=== PATIENT | male | born 1965 | race Caucasian/White ===

== ENCOUNTER 2020-03-13 10:42 | Emergency (ER) | payer OTHER ==
[2020-03-13 11:26] LABS: ABSOLUTE EOSINOPHILS # (AUTO) 0.2 10^3/uL (0.0-0.6); ABSOLUTE MONOCYTES (AUTO) 0.5 10^3/uL (0.1-1.4); ABSOLUTE NEUT (AUTO) 4.3 10^3/uL (1.7-8.2); BASOPHILS % (AUTO) 0.6 % (0-2); EOSINOPHILS % (AUTO) 2.8 % (0-6); HEMATOCRIT 45.8 % (37.9-51.0); HEMOGLOBIN 15.8 g/dL (13.5-17.0); LYMPHOCYTES % (AUTO) 16.9 % (13-45); MEAN CORPUSCULAR HEMOGLOBIN 30.7 pg (27.0-33.4); MEAN CORPUSCULAR HGB CONC 34.6 g/dL (32.0-36.0); MEAN CORPUSCULAR VOLUME 89 fl (80-97); PLATELET COUNT 241 10^3/uL (150-450); RED BLOOD COUNT 5.16 10^6/uL (4.35-5.55); RED CELL DISTRIBUTION WIDTH 13.5 % (11.5-14.0); SEGMENTED NEUTROPHILS % (AUTO) 71.7 % (42-78); TOTAL CELLS COUNTED % (AUTO) 100 %
[2020-03-13 11:46] LABS: ALBUMIN 3.7 g/dL (3.5-5.0); ALKALINE PHOSPHATASE 87 U/L (38-126); ANION GAP 6 (5-19); ASPARTATE AMINO TRANSFERASE 22 U/L (17-59); BILIRUBIN,TOTAL 0.8 mg/dL (0.2-1.3); BLOOD UREA NITROGEN 21 mg/dL (7-20); CALCIUM 8.8 mg/dL (8.4-10.2); CARBON DIOXIDE 27 mmol/L (22-30); CHLORIDE 101 mmol/L (98-107); CREATINE KINASE 50 U/L (55-170); GLUCOSE 217 mg/dL (75-110); POTASSIUM 4.2 mmol/L (3.6-5.0); TOTAL PROTEIN 6.6 g/dL (6.3-8.2)
[2020-03-13 12:05] LABS: TROPONIN I < 0.012 ng/mL
--- NOTE | 2020-03-13 12:25 | RADIOLOGY REPORT (SQ) ---
EXAM DESCRIPTION: CHEST SINGLE VIEW IMAGES COMPLETED DATE/TIME: 03/13/2020 12:16 pm REASON FOR STUDY: chest pain COMPARISON: None. EXAM PARAMETERS: NUMBER OF VIEWS: One view. TECHNIQUE: Single frontal radiographic view of the chest acquired. RADIATION DOSE: NA LIMITATIONS: None. FINDINGS: LUNGS AND PLEURA: Minimal lingular ill-defined opacities. No dense consolidation. No ple ural effusion or pneumothorax. MEDIASTINUM AND HILAR STRUCTURES: No masses. Contour normal. HEART AND VASCULAR STRUCTURES: Normal heart size. Coronary stent. BONES: No acute findings. HARDWARE: None in the chest. OTHER: No other significant finding. IMPRESSION: Minimal ill-defined lingular opacities possibly atelectasis/scarring or infection. Coronary stent. TECHNICAL DOCUMENTATION: JOB ID: [id number] 2010 [employer]- All Rights Reserved Reading location - IP/workstation name: [email or web address]
[2020-03-13] MEDS ORDERED: ASPIRIN 81 MG TABLET, CHEWABLE PO ONE (12:28)
[2020-03-13] MEDS ORDERED: NITROGLYCERIN 2% OINTMENT 1 GM PACKET TP ONE (12:29)
[2020-03-13] MEDS ORDERED: FENTANYL CITRATE INJ/PF 100 MCG/2 ML AMPUL IV ONE (12:30)
[2020-03-13] MEDS ORDERED: ONDANSETRON HCL INJ/PF 4 MG/2 ML SDV IV ONE (12:30)
[2020-03-13] MEDS ORDERED: ENOXAPARIN SODIUM INJ 120 MG/0.8 ML DISP.SYRIN SUBCUT ONE (12:31)
--- NOTE | 2020-03-13 12:41 | ER Document Report ---
ED General - General Chief Complaint: Chest Pain Stated Complaint: CHEST PAIN Time Seen by Provider: 03/13/20 11:27 Primary Care Provider: BENJAMIN NORRIS FNP [Primary Care Provider] - Follow up as needed - HPI Notes: Chief complaint: Chest pain HPI: 54-year-old male with prior history of CAD with 6 previous stent placements and also history of hypertension, obstructive sleep apnea, hyperlipidemia and diabetes mellitus type 2 now presents with 1 week history of progressively worsening exertional chest pain center of chest radiating to the left shoulder and down the left arm. Relieved with rest. Getting progressively worse with less tolerance for exercise. Patient feels generally fatigued. He denies fever chills or cough. He denies nausea or vomiting. He denies dyspnea. Pain is intermittent occurring now with increased frequency. Presently describes pain level about 5/10 at rest. Patient is a non-smoker. He is taking aspirin, Plavix, metoprolol and Lipitor as well as an oral agent for his diabetes. 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 He has not traveled outside the area recently. Patient is previously been treated by [facility] and last had stent placement about 1 year ago at [facility] in [place]. - Related Data Allergies/Adverse Reactions: No Known Allergies Allergy (Verified 03/13/20 11:58) Past Medical History - General Information source: Patient - Social History Smoking Status: Never Smoker Frequency of alcohol use: None Drug Abuse: None Family History: Reviewed & Not Pertinent Patient has suicidal ideation: No Patient has homicidal ideation: No - Past Medical History Cardiac Medical History: Reports: Hx Coronary Artery Disease, Hx Heart Attack - [place] x2, stent x6, Hx Hypercholesterolemia, Hx Hypertension Pulmonary Medical History: Reports: Hx Sleep Apnea - Uses nocturnal CPAP Endocrine Medical History: Reports: Hx Diabetes Mellitus Type 2 Renal/ Medical History: Reports: Hx Kidney Stones Past Surgical History: Reports: Hx Abdominal Surgery - hernia, Hx Cardiac Catheterization, Hx Cardiac Surgery - stents x6, Hx Cholecystectomy, Hx Orthopedic Surgery - knee scope shoulder scope Review of Systems - Review of Systems Notes: Constitutional: Negative for fever. HENT: Negative for sore throat. Eyes: Negative for visual changes. Cardiovascular: As per HPI. Respiratory: Negative for shortness of breath. Gastrointestinal: Negative for abdominal pain, vomiting or diarrhea. Genitourinary: Negative for dysuria. Musculoskeletal: Negative for back pain. Skin: Negative for rash. Neurological: Negative for headaches, focal weakness or numbness. 10 point ROS negative except as marked above and in HPI. Physical Exam - Vital signs Vitals: Resp Pulse Ox 18 98 03/13/20 10:56 03/13/20 10:56 - Notes Notes: Remote Exam Using Telemedicine System GENERAL: Mildly obese middle-age male appearing in mild discomfort. SKIN: no rashes. HEAD: Normocephalic atraumatic. EYES: PERRL. EOMI. Conjunctivae and sclerae clear. NOSE: CLEAR. MOUTH: Moist mucosa. Good dentition. No stridor or edema. No drooling. NECK: Full ROM. No visible masses or thyromegaly. No JVD. BACK: Symmetrical. CHEST: Respirations unlabored. Expands symmetrical. No discomfort with movement or when he presses over his chest wall. ABDOMEN: Mildly obese. Non-distended. GENITALIA: Deferred. EXTREMITIES: No edema. NEUROLOGICAL: GCS 15. Alert and oriented x3. Normal gait. Fluent speech. Cranial nerves II through XII intact. Motor and cerebellar normal. PSYCHIATRIC: Appropriate affect. Course - Re-evaluation Re-evalutation: 03/13/20 12:43 Present findings are of significant concern for acute coronary syndrome. His initial EKG and troponin are unremarkable. I will give him some morphine for relief of his pain and also start him on some transdermal nitroglycerin. He is already taken aspirin and Plavix today. I am to give him a dose of subcu Lovenox. I will speak with his loan adviser at [facility] regarding possible need for transfer to [facility] at this time. 03/13/20 13:00 Case was reviewed with on-call loan adviser for [facility] Dr. Lopez who concurs with initial assessment and interventions. He is excepted the patient for transfer to [facility]. I have completed entire form. Patient is informed of disposition. - Vital Signs Vital signs: Temp Pulse Resp BP Pulse Ox 97.9 F 73 18 123/84 99 03/13/20 15:16 03/13/20 15:16 03/13/20 15:16 03/13/20 15:16 03/13/20 15:16 - Laboratory Result Diagrams: 03/13/20 11:09 03/13/20 11:09 Laboratory results interpreted by me: 03/13/20 11:09 Sodium 134.0 L BUN 21 H Glucose 217 H Creatine Kinase 50 L - Diagnostic Test Radiology reviewed: Reports reviewed - Per radiologist mild basilar changes suggestive of possible old scarring. - EKG Interpretation by Me Additional EKG results interpreted by me: 03/13/20 12:41 Twelve-lead EKG from 1045 hrs. today is reviewed contemporaneously by me demonstrating normal sinus rhythm with a rate of 74, left axis deviation of -36 degrees normal intervals and no acute ST/T wave changes. Critical Care Note - Critical Care Note Total time excluding time spent on procedures (mins): 35 - ACS, Transfer Interventional Cardiology Discharge - Discharge Clinical Impression: Acute coronary syndrome Condition: Good Disposition: [facility] Referrals: BENJAMIN NORRIS FNP [Primary Care Provider] - Follow up as needed
[2020-03-13] MEDS ORDERED: ASPIRIN 81 MG TABLET, CHEWABLE ONE (12:55)
[2020-03-13 15:18] VITALS: BP 123/84
--- NOTE | 2020-03-14 07:26 | EKG REPORT ---
SEVERITY:- OTHERWISE NORMAL ECG - SINUS RHYTHM LEFT AXIS DEVIATION : Confirmed by: Cris Toscano 14-Mar-2020 07:25:17
== END 2020-03-13 15:16 | disposition short-term general hospital (02) ==
LOC: ER 10:42
DX: I24.9 Acute ischemic heart disease, unspecified (principal); I10 Essential (primary) hypertension; I25.10 Atherosclerotic heart disease of native coronary artery without angina pectoris; R07.9 Chest pain, unspecified; M25.512 Pain in left shoulder; M79.602 Pain in left arm; R53.83 Other fatigue; G47.33 Obstructive sleep apnea (adult) (pediatric); E78.5 Hyperlipidemia, unspecified; E11.9 Type 2 diabetes mellitus without complications; Z79.84 Long term (current) use of oral hypoglycemic drugs; Z79.02 Long term (current) use of antithrombotics/antiplatelets; Z79.82 Long term (current) use of aspirin; I25.2 Old myocardial infarction; Z79.899 Other long term (current) drug therapy
CPT/HCPCS: 93005; 99291; 96372; 96374; 96375; 36415; 82553; 82550; 85025; 80053; 84484; 71045; 93010; J3010; J1650; J2405

== ENCOUNTER 2020-07-07 19:12 | Emergency (ER) | payer OTHER ==
[2020-07-07] MEDS ORDERED: ASPIRIN 81 MG TABLET, CHEWABLE PO ONE (19:36)
--- NOTE | 2020-07-07 19:36 | ER Document Report ---
ED Medical Screen (RME) - General Chief Complaint: Chest Pain Stated Complaint: CHEST PAIN Time Seen by Provider: 07/07/20 19:32 Primary Care Provider: BENJAMIN NORRIS FNP [Primary Care Provider] - Follow up as needed Mode of Arrival: Ambulatory Information source: Patient Notes: 55-year-old male presented to ED for complaint of chest pain to the left side of his chest down his left arm off and on all week. He states he did not go to the doctor because he did not like to just run to the hospital frequently. I have explained to him that at his age if he has chest pain going down his left arm he really needs to go to the doctor. He states that nitroglycerin has been helping to relieve the pain but tonight the pain was much worse. He has a history of high blood pressure cholesterol and 7 stents. States he does drink a couple times a month. Does not smoke no illicit drugs. He states his last stent was placed about 6 months ago and his last heart attack was in about 3 years ago. I have greeted and performed a rapid initial assessment of this patient. A comprehensive ED assessment and evaluation of the patient, analysis of test results and completion of medical decision making process will be conducted by an additional ED providers. - Related Data Allergies/Adverse Reactions: No Known Allergies Allergy (Verified 03/13/20 11:58) Past Medical History - Past Medical History Cardiac Medical History: Reports: Hx Coronary Artery Disease, Hx Heart Attack - [place] x2, stent x6, Hx Hypercholesterolemia, Hx Hypertension Pulmonary Medical History: Reports: Hx Sleep Apnea - Uses nocturnal CPAP Endocrine Medical History: Reports: Hx Diabetes Mellitus Type 2 Renal/ Medical History: Reports: Hx Kidney Stones Past Surgical History: Reports: Hx Abdominal Surgery - hernia, Hx Cardiac Catheterization, Hx Cardiac Surgery - stents x6, Hx Cholecystectomy, Hx Orthopedic Surgery - knee scope shoulder scope Physical Exam - Vital signs Vitals: Temp Pulse Resp BP Pulse Ox 97.8 F 77 14 125/72 99 07/07/20 19:25 07/07/20 19:07/07/20 19:25 07/07/20 19:25 07/07/20 19:25 Course - Vital Signs Vital signs: Temp Pulse Resp BP Pulse Ox 97.8 F 77 14 125/72 99 07/07/20 19:25 07/07/20 19:25 07/07/20 19:25 07/07/20 19:25 07/07/20 19:25 Doctor's Discharge - Discharge Referrals: BENJAMIN NORRIS FNP [Primary Care Provider] - Follow up as needed
[2020-07-07 20:07] LABS: ABSOLUTE EOSINOPHILS # (AUTO) 0.2 10^3/uL (0.0-0.6); ABSOLUTE LYMPHOCYTES (AUTO) 1.6 10^3/uL (0.5-4.7); ABSOLUTE MONOCYTES (AUTO) 0.5 10^3/uL (0.1-1.4); ABSOLUTE NEUT (AUTO) 4.1 10^3/uL (1.7-8.2); BASOPHILS % (AUTO) 0.5 % (0-2); EOSINOPHILS % (AUTO) 3.2 % (0-6); HEMATOCRIT 45.2 % (37.9-51.0); HEMOGLOBIN 15.3 g/dL (13.5-17.0); LYMPHOCYTES % (AUTO) 24.2 % (13-45); MEAN CORPUSCULAR HEMOGLOBIN 29.9 pg (27.0-33.4); MEAN CORPUSCULAR HGB CONC 33.8 g/dL (32.0-36.0); MEAN CORPUSCULAR VOLUME 89 fl (80-97); MONOCYTES % (AUTO) 7.8 % (3-13); PLATELET COUNT 211 10^3/uL (150-450); RED BLOOD COUNT 5.11 10^6/uL (4.35-5.55); RED CELL DISTRIBUTION WIDTH 13.5 % (11.5-14.0); SEGMENTED NEUTROPHILS % (AUTO) 64.3 % (42-78); TOTAL CELLS COUNTED % (AUTO) 100 %; WHITE BLOOD COUNT 6.4 10^3/uL (4.0-10.5)
[2020-07-07 20:11] LABS: ALBUMIN 3.8 g/dL (3.5-5.0); ALKALINE PHOSPHATASE 93 U/L (38-126); ANION GAP 5 (5-19); ASPARTATE AMINO TRANSFERASE 21 U/L (17-59); BILIRUBIN,TOTAL 0.4 mg/dL (0.2-1.3); BLOOD UREA NITROGEN 21 mg/dL (7-20); CALCIUM 8.5 mg/dL (8.4-10.2); CARBON DIOXIDE 26 mmol/L (22-30); CHLORIDE 104 mmol/L (98-107); CREATINE KINASE 62 U/L (55-170); GLUCOSE 246 mg/dL (75-110); TOTAL PROTEIN 6.7 g/dL (6.3-8.2)
--- NOTE | 2020-07-07 20:22 | RADIOLOGY REPORT (SQ) ---
EXAM DESCRIPTION: XR CHEST 2 VIEWS COMPLETED DATE/TME: 07/07/2020 19:37 CLINICAL HISTORY: 55 years, Male, Chest pain off and on for the last week COMPARISON: Prior study from 03/13/2020 NUMBER OF VIEWS: 2 TECHNIQUE: Frontal and lateral radiographs were obtained LIMITATIONS: None. FINDINGS: Cardiac and mediastinal contours are stable. Focal nodular opacity projects about over the cardiac silhouette on the lateral projection. This measures 1.3 x 0.8 cm in size. However, it could potentially be artifactual. Lungs are otherwise clear. No pleural effusion or pneumothorax. IMPRESSION: No acute disease. Questionable nodular opacity projecting over the cardiopericardial silhouette on the lateral projection without definite correlate on the frontal projection. This could be artifactual or related to a pulmonary nodule. Correlate with nonemergent CT of the chest. copyright 2010 [employer]- All Rights Reserved
[2020-07-07] MEDS ORDERED: MORPHINE SULFATE 10 MG/ML INJ IV ONE (22:11)
[2020-07-07] MEDS ORDERED: NITROGLYCERIN 0.4 MG/TAB 25 TAB/BOTTLE SL PRN (22:12)
--- NOTE | 2020-07-07 23:20 | EKG REPORT ---
SEVERITY:- BORDERLINE ECG - SINUS RHYTHM LEFT AXIS DEVIATION : Confirmed by: Jeff Armijo MD 07-Jul-2020 23:19:58
--- NOTE | 2020-07-07 23:58 | ER Document Report ---
Entered by KIRA CHOUDHURY SCRIBE 07/07/20 2214 Acting as scribe for:ERINN MCKNIGHT IV, MD ED Cardiac - General Chief Complaint: Chest Pain Stated Complaint: CHEST PAIN Time Seen by Provider: 07/07/20 19:32 Primary Care Provider: BENJAMIN NORRIS FNP [Primary Care Provider] - Follow up as needed Mode of Arrival: Ambulatory Information source: Patient Notes: This 55 year old male patient with a history of HTN, HLD, [place] x2 (last 4 years a go), and CAD with x7 stents placement (last placed 6 months ago) presents to the ED today with complaints intermittent left-sided chest pain for the last x1 week, worse tonight while driving from [place]. Patient states that the pain radiates up his left jaw and down to his left shoulder. Pain was initially a 9/10 in severity and is now 5/10. He reports that the pain comes on mostly at rest and that x2 nights ago, he took SL NTG and x4 baby aspirin and the pain subsided enough that he was able to go to bed; however, the next day, the pain returned. Patient was seen here back in February for the same complaint and was transferred to [facility] at that time. He is followed by a cardiology group at [facility]. 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 Denies any concerns for COVID exposure. Denies fever, cough, chills, or shortness of breath. - Related Data Allergies/Adverse Reactions: No Known Allergies Allergy (Verified 03/13/20 11:58) Home Medications: NTG. Plavix. Aspirin Past Medical History - General Information source: Patient - Social History Smoking Status: Never Smoker Cigarette use (# per day): No Chew tobacco use (# tins/day): No Smoking Education Provided: No Frequency of alcohol use: Occasional Drug Abuse: None Lives with: Spouse/Significant other Family History: Reviewed & Not Pertinent Patient has suicidal ideation: No Patient has homicidal ideation: No - Past Medical History Cardiac Medical History: Reports: Hx Coronary Artery Disease, Hx Heart Attack - [place] x2, stent x7, Hx Hypercholesterolemia, Hx Hypertension Pulmonary Medical History: Reports: Hx Sleep Apnea - Uses nocturnal CPAP Endocrine Medical History: Reports: Hx Diabetes Mellitus Type 2 Renal/ Medical History: Reports: Hx Kidney Stones Past Surgical History: Reports: Hx Cardiac Catheterization, Hx Cardiac Surgery - stents x7, Hx Cholecystectomy, Hx Herniorrhaphy, Hx Orthopedic Surgery - knee scope shoulder scope Review of Systems - Review of Systems Constitutional: See HPI, Other - Fatigue, Weight loss. denies: Chills, Fever EENT: No symptoms reported Cardiovascular: See HPI, Chest pain Respiratory: See HPI. denies: Cough, Short of breath Gastrointestinal: No symptoms reported Genitourinary: See HPI. denies: Burning, Dysuria, Frequency, Hematuria Male Genitourinary: No symptoms reported Musculoskeletal: See HPI, Muscle pain Skin: No symptoms reported Hematologic/Lymphatic: No symptoms reported Neurological/Psychological: No symptoms reported -: Yes All other systems reviewed and negative Physical Exam - Vital signs Vitals: Temp Pulse Resp BP Pulse Ox 97.8 F 77 14 125/72 99 07/07/20 19:25 07/07/20 19:25 07/07/20 19:25 07/07/20 19:25 07/07/20 19:25 Interpretation: Normal - General General appearance: Appears well, Alert In distress: None - HEENT Head: Normocephalic, Atraumatic Eyes: Normal Extraocular movements intact: Yes Pupils: PERRL - Respiratory Respiratory status: No respiratory distress Chest status: Nontender Breath sounds: Normal Chest palpation: Normal - Cardiovascular Rhythm: Regular Heart sounds: Normal auscultation Murmur: No Friction rub: No Gallop: None auscultated - Abdominal Inspection: Normal Distension: No distension Bowel sounds: Normal Tenderness: Nontender - Abdomen soft Organomegaly: No organomegaly - Back Back: Normal, Nontender - Extremities General upper extremity: Normal inspection General lower extremity: Normal inspection - Neurological Neuro grossly intact: Yes Orientation: AAOx4 [place] Coma Scale Eye Opening: Spontaneous [place] Coma Scale Verbal: Oriented [place] Coma Scale Motor: Obeys Commands [place] Coma Scale Total: 15 - Psychological Associated symptoms: Normal affect, Normal mood - Skin Skin Temperature: Warm Skin Moisture: Dry Skin Color: Normal Course - Re-evaluation Re-evalutation: 07/08/20 01:24 Per nursing, patient has a history of a negative stress test and a 100% occluded vessel. 07/08/20 01:24 Patient is chest pain-free after nitro and morphine. 07/08/20 02:28 Transport has arrived to take patient to [facility]. This MD went to the patient's bedside. Patient denies chest pain this time he is alert and oriented x3 and appears to be in no acute distress. The patient appears stable for transport. - Vital Signs Vital signs: Temp Pulse Resp BP Pulse Ox 97.8 F 77 22 H 117/80 97 07/07/20 19:31 07/07/20 19:25 07/08/20 00:01 07/08/20 00:01 07/08/20 00:01 - Laboratory Result Diagrams: 07/07/20 19:46 07/07/20 19:46 Laboratory results interpreted by me: 07/07/20 19:46 Sodium 135.1 L BUN 21 H Glucose 246 H - Diagnostic Test Radiology reviewed: Reports reviewed - EKG Interpretation by Me Additional EKG results interpreted by me: 07/08/20 01:25 EKG obtained on 07/07/2020 at 1921 hrs. was interpreted by this MD. Findings normal sinus rhythm, rate 70, left axis deviation is present, P waves preceding QRS complexes, QRS complexes appear narrow, there are no obvious patterns of ST segment elevation or depression present to suggest acute myocardial ischemia or infarction. Impression: Normal sinus rhythm with left axis deviation and nonspecific ST segments. - Consults DR. MARTINEZ, CARDIOLOGY [facility] Time consulted: 00:15 - DR. MARTINEZ ACCEPTED PT FOR TRANSFER TO HIS FACILITY Reason for consultation: 07/08/20 01:30 Heart score 5, chest pain at rest relieved with nitro, history of multiple stents with the last one being done in February 2020 after having a negative stress test despite what the patient reported as a 100% blocked artery Critical Care Note - Critical Care Note Total time excluding time spent on procedures (mins): 35 - ACS Discharge - Discharge Clinical Impression: ACS (acute coronary syndrome) Condition: Stable Disposition: [facility] Referrals: BENJAMIN NORRIS FNP [Primary Care Provider] - Follow up as needed I personally performed the services described in the documentation, reviewed and edited the documentation which was dictated to the scribe in my presence, and it accurately records my words and actions.
[2020-07-08] MEDS ORDERED: NITROGLYCERIN 2% OINTMENT 1 GM PACKET TP ONE (00:55)
[2020-07-08] MEDS ORDERED: ENOXAPARIN SODIUM INJ 120 MG/0.8 ML DISP.SYRIN SUBCUT STA (00:58)
[2020-07-08 02:36] VITALS: BP 120/84
== END 2020-07-08 03:00 | disposition short-term general hospital (02) ==
LOC: ER 19:12
DX: I24.9 Acute ischemic heart disease, unspecified (principal); R07.9 Chest pain, unspecified; M25.512 Pain in left shoulder; R68.84 Jaw pain; I10 Essential (primary) hypertension; E78.5 Hyperlipidemia, unspecified; I25.2 Old myocardial infarction; I25.10 Atherosclerotic heart disease of native coronary artery without angina pectoris; Z79.82 Long term (current) use of aspirin; Z79.02 Long term (current) use of antithrombotics/antiplatelets; Z79.899 Other long term (current) drug therapy; E11.9 Type 2 diabetes mellitus without complications
CPT/HCPCS: 93005; 99285; 96372; 96374; 36415; 82550; 83735; 85025; 80053; 84484; 71046; 93010; J1650; J2270